=== PATIENT | male | born 1990 | race Asian ===

== ENCOUNTER 2023-11-04 20:49 | Emergency (ER) | payer MEDICAID, OTHER ==
[2023-11-04 21:11] LABS: BASOPHILS PERCENT AUTO 0.5 % (0.2-1.2); EOSINOPHILS PERCENT AUTO 0.5 % (0.0-4.0); HEMATOCRIT 31.7 % (40.0-52.0); HEMOGLOBIN 10.5 g/dL (14.0-18.0); IMMATURE GRAN ABSOLUTE AUTO 0.03 x10^3/uL (0.00-0.07); LYMPHOCYTES ABSOLUTE AUTO 3.8 x10^3/uL (1.0-4.8); LYMPHOCYTES PERCENT AUTO 47.2 % (25.0-50.0); MEAN CORPUSCULAR HEMOGLOBIN 34.9 pg (26.0-32.0); MEAN CORPUSCULAR HGB CONC 33.1 g/dL (32.0-36.0); MEAN CORPUSCULAR VOLUME 105.3 fL (78.0-93.0); MONOCYTES ABSOLUTE AUTO 1.1 x10^3/uL (0.0-0.8); MONOCYTES PERCENT AUTO 12.9 % (2.0-11.0); NEUTROPHILS ABSOLUTE AUTO 3.1 x10^3/uL (1.8-7.7); NEUTROPHILS PERCENT AUTO 38.5 % (50.0-80.0); PLATELET COUNT,PLT 301 x10^3/uL (130-400); RED BLOOD CELL COUNT 3.01 x10^6/uL (4.5-6.0); WHITE BLOOD CELL COUNT,WBC 8.1 x10^3/uL (4.0-10.0)
[2023-11-04 21:15] LABS: APPEARANCE,URINE CLEAR (CLEAR); BILIRUBIN,URINE NEGATIVE (NEGATIVE); COLOR,URINE YELLOW (YELLOW); GLUCOSE,URINE 250 mg/dL (NEGATIVE); KETONES,URINE NEGATIVE (NEGATIVE); LEUKOCYTE ESTERASE,URINE NEGATIVE (NEGATIVE); NITRITE,URINE NEGATIVE (NEGATIVE); OCCULT BLOOD,URINE NEGATIVE (NEGATIVE); PH,URINE 5.5 (5.0-8.0); PROTEIN,URINE NEGATIVE (NEGATIVE); UROBILINOGEN,URINE 0.2 EU/dL (0.2)
[2023-11-04 21:30] LABS: A/G RATIO 0.97; ALANINE AMINOTRANSFERASE,ALT 122 U/L (16-63); ALBUMIN 3.3 g/dL (3.4-5.0); ALKALINE PHOSPHATASE 305 U/L (46-116); ANION GAP 16.7 mmol/L (5-15); ASPARTATE AMNIOTRANSFERASE,AST 105 U/L (15-37); BILIRUBIN TOTAL 2.5 mg/dL (0.2-1.0); BLOOD UREA NITROGEN,BUN 5 mg/dL (7-18); CALCIUM 8.8 mg/dL (8.5-10.1); CARBON DIOXIDE,CO2 21 mmol/L (21-32); CHLORIDE,CL 106 mmol/L (98-107); CREATININE 0.7 mg/dL (0.70-1.30); ESTIMATED GFR 124 mL/min (>=60); GLUCOSE RANDOM 232 mg/dL (70-99); LIPASE 18 U/L (19-71); POTASSIUM,K 4.7 mmol/L (3.5-5.1); PROTEIN TOTAL,TP 6.7 g/dL (6.4-8.2); SODIUM,NA 139 mmol/L (136-145)
[2023-11-04] MEDS: Sodium Chloride 0.9% 1,000 ML IV ONE (22:01)
[2023-11-04] MEDS: Iopamidol 612 MG/ML 100 ML Bottle IVPUSH ONE (22:03)
[2023-11-04] MEDS: Piperacillin/Tazobactam 4.5 GM in Sodium Chloride 0.9% 100 ML IV ONE (23:30)
== END 2023-11-05 00:20 | disposition short-term general hospital (02) ==
LOC: VM.ED 20:49
DX: K56.609 Unspecified intestinal obstruction, unspecified as to partial versus complete obstruction (principal); E11.9 Type 2 diabetes mellitus without complications; Z79.4 Long term (current) use of insulin; Z79.899 Other long term (current) drug therapy
CPT/HCPCS: 36415; 74177; 80053; 80307; 81003; 83605; 83690; 85025; 87040; 87086; 96361; 96365; 99284; 99285; J2543; J3490; J7030; Q9967

== ENCOUNTER 2024-02-12 17:26 | Emergency (ER) | payer MEDICAID, OTHER ==
[2024-02-12] MEDS ORDERED: Sodium Chloride 0.9% 10 ML Syringe FLUSH PRN (17:32)
[2024-02-12] MEDS: Sodium Chloride 0.9% 1,000 ML IV ONE ×2 (17:53→19:02)
[2024-02-12] MEDS: Ondansetron 4 MG/2 ML SDV IVPUSH ONE (17:59)
[2024-02-12] MEDS: LORazepam 2 MG/ML SDV IVPUSH ONE (18:00)
[2024-02-12 18:03] LABS: BASOPHILS PERCENT AUTO 0.1 % (0.2-1.2); EOSINOPHILS PERCENT AUTO 0.2 % (0.0-4.0); HEMATOCRIT 43.8 % (40.0-52.0); IMMATURE GRAN ABSOLUTE AUTO 0.08 x10^3/uL (0.00-0.07); LYMPHOCYTES ABSOLUTE AUTO 0.7 x10^3/uL (1.0-4.8); LYMPHOCYTES PERCENT AUTO 4.1 % (25.0-50.0); MEAN CORPUSCULAR HEMOGLOBIN 30.1 pg (26.0-32.0); MEAN CORPUSCULAR HGB CONC 34.2 g/dL (32.0-36.0); MEAN CORPUSCULAR VOLUME 87.8 fL (78.0-93.0); MONOCYTES ABSOLUTE AUTO 0.7 x10^3/uL (0.0-0.8); MONOCYTES PERCENT AUTO 3.8 % (2.0-11.0); NEUTROPHILS ABSOLUTE AUTO 16.3 x10^3/uL (1.8-7.7); NEUTROPHILS PERCENT AUTO 91.3 % (50.0-80.0); PLATELET COUNT,PLT 145 x10^3/uL (130-400); RED BLOOD CELL COUNT 4.99 x10^6/uL (4.5-6.0)
[2024-02-12 18:05] LABS: WHITE BLOOD CELL COUNT,WBC 17.8 x10^3/uL (4.0-10.0)
[2024-02-12 18:22] LABS: A/G RATIO 0.95; ALANINE AMINOTRANSFERASE,ALT 49 U/L (16-63); ALBUMIN 3.7 g/dL (3.4-5.0); ALKALINE PHOSPHATASE 123 U/L (46-116); ANION GAP 46.6 mmol/L (5-15); ASPARTATE AMNIOTRANSFERASE,AST 33 U/L (15-37); BILIRUBIN TOTAL 1.1 mg/dL (0.2-1.0); BLOOD UREA NITROGEN,BUN 48 mg/dL (7-18); CALCIUM 7.8 mg/dL (8.5-10.1); CARBON DIOXIDE,CO2 6 mmol/L (21-32); CHLORIDE,CL 75 mmol/L (98-107); CREATININE 1.7 mg/dL (0.70-1.30); LIPASE 96 U/L (19-71); POTASSIUM,K 5.6 mmol/L (3.5-5.1); PROTEIN TOTAL,TP 7.6 g/dL (6.4-8.2)
[2024-02-12 18:25] LABS: SODIUM,NA 122 mmol/L (136-145)
[2024-02-12 18:26] LABS: ESTIMATED GFR 53 mL/min (>=60); ETHANOL BLOOD MEDICAL < 3 mg/dL (0-3)
[2024-02-12 18:43] LABS: GLUCOSE RANDOM 806 mg/dL (70-99)
[2024-02-12] MEDS ORDERED: Glucagon,Human Recombinant 1 MG Vial IM PRN (18:43)
[2024-02-12] MEDS ORDERED: 50% Dextrose in Water 50 ML Syringe IVPUSH PRN (18:43)
[2024-02-12] MEDS: Insulin Regular, Human 100 Units/ML 3 ML Vial IVPUSH ONE (19:01)
[2024-02-12] MEDS: Iopamidol 612 MG/ML 100 ML Bottle IVPUSH ONE (19:03)
[2024-02-12] MEDS ORDERED: Insulin Regular in 0.9 % NACL 100 ML IV SCH ×2 (19:15→21:21)
[2024-02-12] MEDS ORDERED: Insulin Regular, Human 100 Units/ML 3 ML Vial ONE (19:22)
[2024-02-12] MEDS: Sodium Chloride 0.9% 500 ML IV ONE (20:10)
== END 2024-02-12 20:15 | disposition short-term general hospital (02) ==
LOC: VM.ED 17:26
DX: E10.10 Type 1 diabetes mellitus with ketoacidosis without coma (principal); E86.0 Dehydration; E87.1 Hypo-osmolality and hyponatremia; Z79.899 Other long term (current) drug therapy; Z79.4 Long term (current) use of insulin
CPT/HCPCS: 36415; 80053; 80307; 82947; 83605; 83690; 85025; 86850; 86870; 86900; 86901; 96361; 96374; 96375; 99284; 99285; J1815; J2060; J2405; J7030; 86905

== ENCOUNTER 2024-02-25 13:18 | Emergency (ER) | payer MEDICAID ==
[2024-02-25] MEDS ORDERED: Sodium Chloride 0.9% 10 ML Syringe FLUSH PRN (13:48)
[2024-02-25 13:56] LABS: BASOPHILS PERCENT AUTO 0.4 % (0.2-1.2); HEMATOCRIT 38.8 % (40.0-52.0); HEMOGLOBIN 13.3 g/dL (14.0-18.0); IMMATURE GRAN ABSOLUTE AUTO 0.02 x10^3/uL (0.00-0.07); LYMPHOCYTES ABSOLUTE AUTO 1.3 x10^3/uL (1.0-4.8); LYMPHOCYTES PERCENT AUTO 13.8 % (25.0-50.0); MEAN CORPUSCULAR HEMOGLOBIN 29.9 pg (26.0-32.0); MEAN CORPUSCULAR HGB CONC 34.3 g/dL (32.0-36.0); MEAN CORPUSCULAR VOLUME 87.2 fL (78.0-93.0); MONOCYTES ABSOLUTE AUTO 0.4 x10^3/uL (0.0-0.8); MONOCYTES PERCENT AUTO 3.9 % (2.0-11.0); NEUTROPHILS ABSOLUTE AUTO 7.4 x10^3/uL (1.8-7.7); NEUTROPHILS PERCENT AUTO 81.7 % (50.0-80.0); PLATELET COUNT,PLT 395 x10^3/uL (130-400); RED BLOOD CELL COUNT 4.45 x10^6/uL (4.5-6.0)
[2024-02-25] MEDS: Lactated Ringers 1,000 ML IV ONE (14:04)
[2024-02-25] MEDS: Prochlorperazine 10 MG/2 ML SDV IV ONE (14:04)
[2024-02-25] MEDS: Ketorolac 15 MG/ML SDV IVPUSH ONE (14:04)
[2024-02-25] MEDS: diphenhydrAMINE 50 MG/ML SDV IVPUSH ONE (14:07)
[2024-02-25] MEDS ORDERED: LORazepam 2 MG/ML SDV IVPUSH ONE (14:09)
[2024-02-25 14:14] LABS: A/G RATIO 0.89; ALANINE AMINOTRANSFERASE,ALT 68 U/L (16-63); ALBUMIN 3.4 g/dL (3.4-5.0); ALKALINE PHOSPHATASE 215 U/L (46-116); ASPARTATE AMNIOTRANSFERASE,AST 39 U/L (15-37); BILIRUBIN TOTAL 0.4 mg/dL (0.2-1.0); BLOOD UREA NITROGEN,BUN 8 mg/dL (7-18); CALCIUM 9.2 mg/dL (8.5-10.1); CARBON DIOXIDE,CO2 28 mmol/L (21-32); CHLORIDE,CL 104 mmol/L (98-107); CREATININE 0.8 mg/dL (0.70-1.30); PROTEIN TOTAL,TP 7.2 g/dL (6.4-8.2); SODIUM,NA 143 mmol/L (136-145)
[2024-02-25 14:16] LABS: ESTIMATED GFR 118 mL/min (>=60); GLUCOSE RANDOM 472 mg/dL (70-99)
[2024-02-25] MEDS ORDERED: 50% Dextrose in Water 50 ML Syringe IVPUSH PRN (14:16)
[2024-02-25] MEDS ORDERED: Glucagon,Human Recombinant 1 MG Vial IM PRN (14:16)
[2024-02-25] MEDS: Insulin Regular, Human 100 Units/ML 10 ML Vial IV ONE (14:24)
== END 2024-02-25 16:00 | disposition home or self-care (01) ==
LOC: VM.ED 13:18
DX: S00.03XA Contusion of scalp, initial encounter (principal); G44.319 Acute post-traumatic headache, not intractable; E11.65 Type 2 diabetes mellitus with hyperglycemia; Z79.4 Long term (current) use of insulin; Z79.899 Other long term (current) drug therapy; X58.XXXA Exposure to other specified factors, initial encounter
CPT/HCPCS: 36415; 70450; 80053; 82947; 85025; 96361; 96374; 96375; 99284; 99284-25; A9270-GY; J0780; J1200; J1885; J7120

== ENCOUNTER 2024-03-25 21:19 | Emergency (ER) | payer MEDICAID ==
[2024-03-25] MEDS ORDERED: Sodium Chloride 0.9% 10 ML Syringe FLUSH PRN (21:37)
[2024-03-25] MEDS ORDERED: 50% Dextrose in Water 50 ML Syringe IVPUSH PRN (21:40)
[2024-03-25] MEDS ORDERED: Glucagon,Human Recombinant 1 MG Vial IM PRN (21:40)
[2024-03-25] MEDS: Lactated Ringers 1,000 ML IV ONE ×2 (22:10→23:00)
[2024-03-25 22:15] LABS: HEMATOCRIT 44.8 % (40.0-52.0); MEAN CORPUSCULAR HEMOGLOBIN 30.2 pg (26.0-32.0); MEAN CORPUSCULAR HGB CONC 33.5 g/dL (32.0-36.0); MEAN CORPUSCULAR VOLUME 90.3 fL (78.0-93.0); PLATELET COUNT,PLT 173 x10^3/uL (130-400); RED BLOOD CELL COUNT 4.96 x10^6/uL (4.5-6.0)
[2024-03-25 22:21] LABS: WHITE BLOOD CELL COUNT,WBC 21.9 x10^3/uL (4.0-10.0)
[2024-03-25 22:25] LABS: HCO3 VENOUS,POC 4 mmol/L (22-29); O2 SATURATION VENOUS,POC 85 %; PCO2 VENOUS,POC 12 mmHg (41-51); PH VENOUS,POC 7.12 pH (7.32-7.43); PO2 VENOUS,POC 64 mmHg
[2024-03-25] MEDS: Ondansetron 4 MG/2 ML SDV IVPUSH ONE (22:25)
[2024-03-25 22:29] LABS: PROTHROMBIN TIME 9.9 SEC (8.9-11.5)
[2024-03-25] MEDS: Insulin Regular, Human 100 Units/ML 10 ML Vial IV ONE (22:30)
[2024-03-25 22:33] LABS: BAND PERCENT MAN 4 % (0-6); LYMPHOCYTES ABSOLUTE MAN 0.7 x10^3/uL (1.0-4.8); LYMPHOCYTES PERCENT MAN 3 % (25-50); MONOCYTES ABSOLUTE MAN 0.7 x10^3/uL (0.0-0.8); MONOCYTES PERCENT MAN 3 % (2-11); NEUTROPHILS ABSOLUTE MAN 20.6 x10^3/uL (1.8-7.7); PLATELET COUNT ESTIMATE ADEQUATE; SEG NEUTROPHILS PERCENT MAN 90 % (50-80)
[2024-03-25 22:40] LABS: A/G RATIO 0.93; ALANINE AMINOTRANSFERASE,ALT 47 U/L (16-63); ALBUMIN 4.1 g/dL (3.4-5.0); ALKALINE PHOSPHATASE 151 U/L (46-116); AMYLASE 77 U/L (25-115); ANION GAP 42.7 mmol/L (5-15); ASPARTATE AMNIOTRANSFERASE,AST 26 U/L (15-37); BILIRUBIN TOTAL 1.6 mg/dL (0.2-1.0); BLOOD UREA NITROGEN,BUN 39 mg/dL (7-18); CALCIUM 9.5 mg/dL (8.5-10.1); CARBON DIOXIDE,CO2 9 mmol/L (21-32); CHLORIDE,CL 79 mmol/L (98-107); CREATININE 1.7 mg/dL (0.70-1.30); ESTIMATED GFR 53 mL/min (>=60); ETHANOL BLOOD MEDICAL < 3 mg/dL (0-3); LIPASE 82 U/L (19-71); MAGNESIUM 2.8 mg/dL (1.8-2.4); PHOSPHORUS 7.4 mg/dL (2.6-4.7); POTASSIUM,K 4.7 mmol/L (3.5-5.1); PROTEIN TOTAL,TP 8.5 g/dL (6.4-8.2)
[2024-03-25 22:41] LABS: GLUCOSE RANDOM 671 mg/dL (70-99); SODIUM,NA 126 mmol/L (136-145)
[2024-03-25] MEDS: LORazepam 2 MG/ML SDV IVPUSH ONE (22:47)
[2024-03-25] MEDS ORDERED: Insulin Regular in 0.9 % NACL 100 ML IV SCH (23:15)
[2024-03-25] MEDS: Insulin Regular in 0.9 % NACL 100 ML ONE (23:25)
[2024-03-26] MEDS: Lactated Ringers 1,000 ML IV SCH (00:40)
[2024-03-26 06:59] LABS: APPEARANCE,URINE CLEAR (CLEAR); COLOR,URINE YELLOW (YELLOW)
[2024-03-26 07:00] LABS: BILIRUBIN,URINE SMALL (NEGATIVE); GLUCOSE,URINE >=1000 mg/dL (NEGATIVE); KETONES,URINE 80 mg/dL (NEGATIVE); NITRITE,URINE NEGATIVE (NEGATIVE); OCCULT BLOOD,URINE TRACE-INTACT (NEGATIVE); PH,URINE 5.5 (5.0-8.0); PROTEIN,URINE 30 mg/dL (NEGATIVE); UROBILINOGEN,URINE 0.2 EU/dL (0.2)
[2024-03-26 07:01] LABS: LEUKOCYTE ESTERASE,URINE NEGATIVE (NEGATIVE)
[2024-03-26 07:07] LABS: AMPHETAMINES SCREEN, URINE NEGATIVE (NEGATIVE); BARBITURATE SCREEN,URINE NEGATIVE (NEGATIVE); BENZODIAZEPINES SCREEN,URINE NEGATIVE (NEGATIVE); BUPRENORPHINE SCREEN,URINE NEGATIVE (NEGATIVE); COCAINE METABOLITES,URINE NEGATIVE (NEGATIVE); METHADONE SCREEN, URINE NEGATIVE (NEGATIVE); METHAMPHETAMINE SCREEN, URINE NEGATIVE (NEGATIVE); OXYCODONE SCREEN,URINE NEGATIVE (NEGATIVE); PCP SCREEN,URINE NEGATIVE (NEGATIVE); THC SCREEN,URINE 50 NG/ML NEGATIVE (NEGATIVE)
[2024-03-26 07:21] LABS: RBC,URINE 0-5 /HPF (NOT SEEN); WBC,URINE 0-5 /HPF (NOT SEEN)
[2024-03-26 07:22] LABS: BACTERIA,URINE NOT SEEN /HPF (NOT SEEN); MUCUS,URINE RARE /LPF (NOT SEEN); SQUAMOUS EPITHELIAL CELLS,UR NOT SEEN /HPF (NOT SEEN)
== END 2024-03-26 00:40 | disposition short-term general hospital (02) ==
LOC: VM.ED 21:19
DX: E11.10 Type 2 diabetes mellitus with ketoacidosis without coma (principal); R11.2 Nausea with vomiting, unspecified; E86.0 Dehydration; R74.02 Elevation of levels of lactic acid dehydrogenase [LDH]; E11.9 Type 2 diabetes mellitus without complications; Z79.4 Long term (current) use of insulin; Z79.899 Other long term (current) drug therapy
CPT/HCPCS: 36415; 71045; 80053; 80305-QW; 80307; 81001; 82140; 82150; 82803; 82947; 83605; 83690; 83735; 84100; 84484; 85025; 85610; 85730; 87040; 96361; 96374; 96375; 99285-25; A9270-GY; J1815-GY; J2060; J2405; J7120